=== PATIENT | male | born 1965 | race African-American/Black ===

== ENCOUNTER 2018-01-31 10:02 | Emergency (ER) | payer MEDICARE, OTHER ==
[~2018-01-31] VITALS: Ht 188 cm; Wt 141.5 kg
[2018-01-31 10:13] VITALS: BP 155/96
--- NOTE | 2018-01-31 10:24 | PHYS DOC ---
Past Medical History Past Medical History: Diabetes-Type II, Hypertension, Seizure Past Surgical History: Other Additional Past Surgical Histo: STENT SOMEWHERE IN HIS BODY Alcohol Use: None Drug Use: None Adult General Chief Complaint Chief Complaint: INSECT BITE HPI HPI Patient is a 52 year old male with history of diabetes type 2, hypertension, seizures, who presents today complaining of insect bites to the right side of his face, scalp, and right upper extremity that he noted this morning when he woke up. Patient denies any knowledge of what bit him. He states he supposed to go to a drug treatment center on Saturday and would like to make sure that these insect bites will not affect them accepting him in the drug treatment center. Denies any anaphylaxis type of reaction. Review of Systems Review of Systems Constitutional: Denies fever or chills [] Eyes: Denies change in visual acuity, redness, or eye pain [] HENT: Denies nasal congestion or sore throat [] Respiratory: Denies cough or shortness of breath [] Cardiovascular: No additional information not addressed in HPI [] GI: Denies abdominal pain, nausea, vomiting, bloody stools or diarrhea [] : Denies dysuria or hematuria [] Musculoskeletal: Denies back pain or joint pain [] Integument: insect bites. Neurologic: Denies headache, focal weakness or sensory changes [] All other systems were reviewed and found to be within normal limits, except as documented in this note. Allergies Allergies Allergies Coded Allergies Type Severity Reaction Last Updated Verified No Known Drug Allergies 02/14/15 No Physical Exam Physical Exam Constitutional: Well developed, well nourished, no acute distress, non-toxic appearance. [] HENT: Normocephalic, atraumatic, bilateral external ears normal, oropharynx moist, no oral exudates, nose normal. Airway is open Eyes: PERRLA, EOMI, conjunctiva normal, no discharge. [] Neck: Normal range of motion, no tenderness, supple, no stridor. [] Cardiovascular:Heart rate regular rhythm, no murmur [] Lungs & Thorax: Bilateral breath sounds clear to auscultation [] Abdomen: Bowel sounds normal, soft, no tenderness, no masses, no pulsatile masses. [] Skin: Warm, dry, small are of induration approx. 1X1 cm with no erythema below the right lower eye, scalp and right humerus. The areas are not warm to touch. The areas are slightly tender. No signs of infection. Back: No tenderness, no CVA tenderness. [] Extremities: No tenderness, no cyanosis, no clubbing, ROM intact, no edema. [] Neurologic: Alert and oriented X 3, normal motor function, normal sensory function, no focal deficits noted. [] Psychologic: Affect normal, judgement normal, mood normal. [] EKG EKG [] Radiology/Procedures Radiology/Procedures [] Course & Med Decision Making Course & Med Decision Making Pertinent Labs and Imaging studies reviewed. (See chart for details) This is a 52-year-old male patient presenting to the ED today with insect bites. None of them appear infected. No anaphylactic type of reaction symptoms. Reassured patient he can take Zyrtec during the day and Benadryl tonight for his bites. His tetanus is up-to-date. Follow-up with primary care doctor in 1-2 weeks as needed. Dragon Disclaimer Dragon Disclaimer This electronic medical record was generated, in whole or in part, using a voice recognition dictation system. Departure Departure Impression: Primary Impression: Insect bite Disposition: HOME, SELF-CARE Condition: STABLE Referrals: MCKENZIE DAVIS (PCP) You follow-up in 1-2 weeks as needed Patient Instructions: Insect Bite, [id number] Additional Instructions: You were evaluated in the emergency room for insect bites, your rash is not contagious and you can go the the rehabilitation facility any time they can take you. Please take Zyrtec during the day and Benadryl at night as needed for the insect bites. Follow-up with doctor in 1-2 weeks. Problem Qualifiers Primary Impression: Insect bite Encounter type: initial encounter Qualified Codes: W57.XXXA - Bitten or stung by nonvenomous insect and other nonvenomous arthropods, initial encounter GUILLE FLEMING APRN Jan 31, 2018 10:24
== END 2018-01-31 10:35 | disposition home or self-care (01) ==
LOC: ER 10:02
DX: S00.86XA Insect bite (nonvenomous) of other part of head, initial encounter (principal); S00.06XA Insect bite (nonvenomous) of scalp, initial encounter; S40.861A Insect bite (nonvenomous) of right upper arm, initial encounter; I10 Essential (primary) hypertension; E11.9 Type 2 diabetes mellitus without complications; W57.XXXA Bitten or stung by nonvenomous insect and other nonvenomous arthropods, initial encounter; Y93.89 Activity, other specified; Y92.89 Other specified places as the place of occurrence of the external cause; Y99.8 Other external cause status
CPT/HCPCS: 99281

== ENCOUNTER 2018-02-18 10:11 | Emergency (ER) | payer MEDICARE, OTHER ==
[~2018-02-18] VITALS: Ht 188 cm; Wt 147.4 kg
[2018-02-18 10:26] VITALS: BP 150/90
[2018-02-18] MEDS ORDERED: KETOROLAC 60 MG/2 ML INJ. IM ONE (11:00)
[2018-02-18] MEDS ORDERED: predniSONE 10 MG TABLET PO ONE (11:00)
[2018-02-18] MEDS ORDERED: PRED50TA PO (11:00)
--- NOTE | 2018-02-18 11:00 | PHYS DOC ---
Past Medical History Past Medical History: Diabetes-Type II, Hypertension, Seizure Past Surgical History: Other Additional Past Surgical Histo: cardiac stent Alcohol Use: Rarely Drug Use: Cocaine Adult General Chief Complaint Chief Complaint: BACK PAIN OR INJURY HPI HPI Patient is a 52 year old male who presents with has been had been back pain with sharp shooting pains down bilateral back legs 4 days. Patient's been on a drug rehabilitation facility and had a check himself out because he would not call EMS or take him to the doctor. He states they've been giving him Tylenol or ibuprofen which is not helping. Patient states that these been having a very hard time walking now. Review of Systems Review of Systems Constitutional: Denies fever or chills [] Eyes: Denies change in visual acuity, redness, or eye pain [] HENT: Denies nasal congestion or sore throat [] Respiratory: Denies cough or shortness of breath [] Cardiovascular: No additional information not addressed in HPI [] GI: Denies abdominal pain, nausea, vomiting, bloody stools or diarrhea [] : Denies dysuria or hematuria [] Musculoskeletal: Low back pain that radiates shape pain into bilateral legs. Denies joint pain [] Integument: Denies rash or skin lesions [] Neurologic: Denies headache, focal weakness or sensory changes [] Endocrine: Denies polyuria or polydipsia [] All other systems were reviewed and found to be within normal limits, except as documented in this note. Current Medications Current Medications Current Medications Medications (Trade) Dose Ordered Sig/[facility] Start Time Stop Time Status Last Admin Dose Admin Ketorolac Tromethamine (Toradol Im) 60 mg 1X ONCE 02/18/18 11:00 02/18/18 11:01 DC 02/18/18 11:08 60 MG Prednisone (Prednisone) 50 mg 1X ONCE 02/18/18 11:00 02/18/18 11:01 DC 02/18/18 11:08 50 MG Allergies Allergies Allergies Coded Allergies Type Severity Reaction Last Updated Verified No Known Drug Allergies 02/14/15 No Physical Exam Physical Exam Constitutional: Well developed, well nourished, no acute distress, non-toxic appearance. [] HENT: Normocephalic, atraumatic, bilateral external ears normal, oropharynx moist, no oral exudates, nose normal. [] Eyes: PERRLA, EOMI, conjunctiva normal, no discharge. [] Neck: Normal range of motion, no tenderness, supple, no stridor. [] Cardiovascular:Heart rate regular rhythm, no murmur [] Lungs & Thorax: Bilateral breath sounds clear to auscultation [] Abdomen: Bowel sounds normal, soft, no tenderness, no masses, no pulsatile masses. [] Skin: Warm, dry, no erythema, no rash. [] Back: No tenderness, no CVA tenderness. [] Extremities: No tenderness, no cyanosis, no clubbing, ROM intact in back and legs due to pain, no edema. [] Neurologic: Alert and oriented X 3, normal motor function, normal sensory function, no focal deficits noted. [] Psychologic: Affect normal, judgement normal, mood normal. [] Current Patient Data Vital Signs Vital Signs Date Time Temp Pulse Resp B/P (MAP) Pulse Ox O2 Delivery O2 Flow Rate FiO2 02/18/18 10:26 98.1 89 20 150/90 (110) 97 Room Air 98.1 EKG EKG [] Radiology/Procedures Radiology/Procedures [] Course & Med Decision Making Course & Med Decision Making Patient is a 52 year old male who presents with has been had been back pain with sharp shooting pains down bilateral back legs 4 days. Patient's been on a drug rehabilitation facility and had a check himself out because he would not call EMS or take him to the doctor. He states they've been giving him Tylenol or ibuprofen which is not helping. Patient states that these been having a very hard time walking now. Patient is no C-spine bony tenderness. There are no deformities noted. Patient states that on the he has a appointment with his primary care doctor that is at . Patient denies any urinary symptoms or fever. Patient states he does have chronic low back pain. Patient has no known drug allergies. Patient states he take no medications. Patient is given Prednisone and Toradol IM in the ED. Patient is sent home with a prescription for Prednisone and is told to also take Ibuprofen and try a warm compress for pain. Patient is to follow up with his primary care as soon as possible. [] Dragon Disclaimer Dragon Disclaimer This electronic medical record was generated, in whole or in part, using a voice recognition dictation system. Departure Departure Impression: Primary Impression: Sciatica Disposition: HOME, SELF-CARE Condition: STABLE Referrals: MCKENZIE DAVIS (PCP) Patient Instructions: Sciatica Additional Instructions: FOLLOW UP WITH YOUR PRIMARY CARE ON THE SCHEDULED. USE HEAT AND IBUPROFEN FOR PAIN. TAKE MEDICATIONS PRESCRIBED. Scripts Prednisone (PREDNISONE) 50 Mg Tablet 1 TAB PO DAILY for 4 Days, #4 TAB Prov: CAITY CAMEJO APRN 02/18/18 Problem Qualifiers Primary Impression: Sciatica Laterality: bilateral Qualified Codes: M54.31 - Sciatica, right side; M54.32 - Sciatica, left side CAITY CAMEJO APRN Feb 18, 2018 11:00
== END 2018-02-18 11:13 | disposition home or self-care (01) ==
LOC: ER 10:11
DX: M54.42 Lumbago with sciatica, left side (principal); M54.41 Lumbago with sciatica, right side; I10 Essential (primary) hypertension; E11.9 Type 2 diabetes mellitus without complications; Z95.5 Presence of coronary angioplasty implant and graft
CPT/HCPCS: 96372; 99283; J1885; J7512